=== PATIENT | female | born 1980 | race Hispanic/Latino ===

== ENCOUNTER 2017-03-14 09:54 | Emergency (ER) | payer MEDICAID, OTHER ==
[2017-03-14 09:58] VITALS: BMI 26.4
[2017-03-14 10:01] VITALS: TEMP 98; O2SAT 95
--- NOTE | 2017-03-14 10:32 | C.PDOC ---
History Of Present Illness 36 year old female presents to the ED with complaints of burning and urgency with urination since yesterday. Patient states "I think I have a UTI" and has not had a UTI "in a long time." She denies any fever or abdominal pain. Time Seen by Provider: 03/14/17 10:25 Chief Complaint (Nursing): Female Genitourinary History Per: Patient History/Exam Limitations: no limitations Onset/Duration Of Symptoms: Days (symptoms began yesterday ) Current Symptoms Are (Timing): Still Present Quality Of Discomfort: Burning Associated Symptoms: Urinary Symptoms. denies: Fever, Chills, Nausea, Vomiting , Diarrhea Recent travel outside of the [place]: No Abnormal Vaginal Bleeding: No Past Medical History Reviewed: Historical Data, Nursing Documentation, Vital Signs Vital Signs: Last Vital Signs Temp 98 F 03/14/17 09:57 Pulse 80 03/14/17 09:57 Resp 18 03/14/17 09:57 BP 109/72 03/14/17 09:57 Pulse Ox 95 03/14/17 11:10 Family History: States: Unknown Family Hx - Social History Hx Alcohol Use: No Hx Substance Use: No - Immunization History Hx Tetanus Toxoid Vaccination: No Hx Influenza Vaccination: No Hx Pneumococcal Vaccination: No Review Of Systems Constitutional: Negative for: Fever, Chills Cardiovascular: Negative for: Chest Pain Respiratory: Negative for: Shortness of Breath Gastrointestinal: Negative for: Nausea, Vomiting, Abdominal Pain, Diarrhea Genitourinary: Positive for: Dysuria, Other (urgency ). Negative for: Hematuria , Vaginal Bleeding Musculoskeletal: Negative for: Back Pain Physical Exam - Physical Exam Appears: Non-toxic, No Acute Distress Skin: Warm, Dry Eye(s): bilateral: Normal Inspection Oral Mucosa: Moist Neck: Supple Chest: Symmetrical, No Deformity Cardiovascular: Rhythm Regular Respiratory: Normal Breath Sounds, No Rhonchi, No Wheezing Gastrointestinal/Abdominal: Soft, No Tenderness, No Distention, No Guarding, No Rebound Back: Normal Inspection, No CVA Tenderness, No Vertebral Tenderness, No Paraspinal Tenderness Extremity: Normal ROM, No Tenderness Neurological/Psych: Oriented x3 ED Course And Treatment - Laboratory Results Urine POC: Negative O2 Sat by Pulse Oximetry: 95 (room air ) Disposition Counseled Patient/Family Regarding: Studies Performed, Diagnosis, Need For Followup, Rx Given - Disposition Referrals: YOUR,PMD [Other] Disposition: HOME/ ROUTINE Disposition Time: 11:33 Condition: GOOD Prescriptions: Nitrofurantoin Macrocrystals [Macrobid] 1 cap PO BID #14 cap Phenazopyridine HCl [Pyridium] 200 mg PO BID #6 tablet Instructions: Urinary Tract Infection in Women (ED) Forms: Work/School/Gym Excuse - Clinical Impression Clinical Impression: UTI (urinary tract infection) - Scribe Statement The provider has reviewed the documentation as recorded by the Scribgenesis Belle All medical record entries made by the Carmelaibgenesis were at my direction and personally dictated by me. I have reviewed the chart and agree that the record accurately reflects my personal performance of the history, physical exam, medical decision making, and the department course for this patient. I have also personally directed, reviewed, and agree with the discharge instructions and disposition.
[2017-03-14 11:29] LABS: SQUAMOUS EPITHIAL 3 /hpf (0-5); URINE BACTERIA OCC (<OCC); URINE BILIRUBIN NEGATIVE (NEGATIVE); URINE BLOOD 1+ (NEGATIVE); URINE CLARITY Clear (Clear); URINE COLOR Amber (YELLOW); URINE GLUCOSE (UA) NORMAL (Normal); URINE LEUKOCYTE ESTERASE TRACE Leu/uL (Negative); URINE NITRATE POSITIVE (NEGATIVE); URINE PROTEIN 1+ mg/dL (NEGATIVE)
[2017-03-14 11:37] VITALS: BP 132/82; PULSE 74; RESP 16
== END 2017-03-14 11:37 | disposition home or self-care (01) ==
LOC: C.ER 09:54
DX: N39.0 Urinary tract infection, site not specified (principal)

== ENCOUNTER 2017-04-14 18:09 | Emergency (ER) | payer MEDICAID, OTHER | END 2017-04-14 19:53 | disposition home or self-care (01) | LOC: C.ER 18:09 | DX: J32.9 Chronic sinusitis, unspecified (principal) ==

== ENCOUNTER 2017-10-05 12:37 | Emergency (ER) | payer MEDICAID ==
[2017-10-05 12:43] VITALS: BMI 26.4
--- NOTE | 2017-10-05 14:36 | C.PDOC ---
History Of Present Illness 37 y/o female presents to ED for evaluation of body aches, weakness and head ache X 5 days. Today at work she collapsed. c/o headache 6/10, weakness and body aches for 5 days. Patient states she was feeling "tired" and collapsed. Patient reports mild nose congestion and states she does not usual get headaches which prompted visit to ED. Patient denies nausea, vomiting, numbness , back pain or any other complaints at this time. Time Seen by Provider: 10/05/17 14:14 Chief Complaint (Nursing): Altered Mental Status History Per: Patient History/Exam Limitations: no limitations Onset/Duration Of Symptoms: Hrs Current Symptoms Are (Timing): Still Present Past Medical History Reviewed: Historical Data, Nursing Documentation, Vital Signs Vital Signs: Last Vital Signs Temp 97.7 F 10/05/17 15:42 Pulse 62 10/05/17 15:42 Resp 18 10/05/17 15:42 BP 108/67 10/05/17 15:42 Pulse Ox 98 10/05/17 15:42 - Medical History PMH: Migraine Surgical History: No Surg Hx Family History: States: No Known Family Hx - Social History Hx Alcohol Use: No Hx Substance Use: No - Immunization History Hx Tetanus Toxoid Vaccination: No Hx Influenza Vaccination: No Hx Pneumococcal Vaccination: No Review Of Systems Constitutional: Negative for: Fever, Chills Gastrointestinal: Negative for: Nausea, Vomiting Skin: Negative for: Rash Neurological: Positive for: Weakness, Headache. Negative for: Numbness Physical Exam - Physical Exam Appears: Non-toxic, No Acute Distress Skin: Warm, Dry, No Rash Head: Atraumatic, Normacephalic Eye(s): bilateral: Normal Inspection Oral Mucosa: Moist Neck: Normal ROM, Supple Cardiovascular: Rhythm Regular Respiratory: Normal Breath Sounds, No Rales, No Rhonchi, No Wheezing Gastrointestinal/Abdominal: Soft, No Tenderness, No Guarding, No Rebound Back: No CVA Tenderness Extremity: Normal ROM, Capillary Refill (<2 seconds) Neurological/Psych: Oriented x3 ED Course And Treatment O2 Sat by Pulse Oximetry: 99 (RA) Pulse Ox Interpretation: Normal Progress Note: Tylenol, Motrin and Tamaflu administered. Influenza test ordered Disposition Counseled Patient/Family Regarding: Studies Performed, Diagnosis, Need For Followup - Disposition Referrals: [facility] [Outside] Disposition: HOME/ ROUTINE Disposition Time: 15:49 Condition: IMPROVED Additional Instructions: Your flu test was negative, but during an epidemic we choose to treat you for flu either way. Please follow up with your doctor or our clinic. Prescriptions: Ibuprofen [Motrin] 1 tab PO TID PRN #30 tab PRN Reason: Pain Oseltamivir [Tamiflu] 1 cap PO BID #10 cap Instructions: Viral Syndrome (ED) Forms: [facility] ([place]), General Discharge Instructions, Work Excuse - POA Present On Arrival: None - Clinical Impression Clinical Impression: Influenza-like illness - Scribe Statement The provider has reviewed the documentation as recorded by the Scribgenesis Boucher All medical record entries made by the Scribe were at my direction and personally dictated by me. I have reviewed the chart and agree that the record accurately reflects my personal performance of the history, physical exam, medical decision making, and the department course for this patient. I have also personally directed, reviewed, and agree with the discharge instructions and disposition.
[2017-10-05 15:43] VITALS: BP 108/67; PULSE 62; RESP 18; TEMP 97.7
[2017-10-05 15:51] VITALS: O2SAT 99
== END 2017-10-05 16:00 | disposition home or self-care (01) ==
LOC: C.ER 12:37
DX: J11.1 Influenza due to unidentified influenza virus with other respiratory manifestations (principal)

== ENCOUNTER 2017-12-21 11:36 | Emergency (ER) | payer MEDICAID ==
[2017-12-21 11:48] VITALS: BMI 27.3
--- NOTE | 2017-12-21 12:38 | C.PDOC ---
History Of Present Illness 37 y/o female presents to ED for evaluation of left neck and shoulder pain gradually developed for "past few days after I went to gym". Patient states , " Im might pulled muscle on neck" , now complaints of pain extends from left lateral neck down to left shoulder and left arm associated with intermittent tingling over left hand fingers. Otherwise, Patient denies direct trauma, injury , headache, dizziness, CP, SOB, dyspnea, diaphoresis, palpitation, denies weakness, vascular deficits to Left arm. Ambulate to Ed for evaluation, not in any apparent distress. Time Seen by Provider: 12/21/17 11:52 Chief Complaint (Nursing): Upper Extremity Problem/Injury History Per: Patient History/Exam Limitations: no limitations Onset/Duration Of Symptoms: Days, Gradual Current Symptoms Are (Timing): Still Present Past Medical History Reviewed: Historical Data, Nursing Documentation, Vital Signs Vital Signs: Last Vital Signs Temp 98.0 F 12/21/17 12:49 Pulse 78 12/21/17 12:49 Resp 18 12/21/17 12:49 BP 118/72 12/21/17 12:49 Pulse Ox 98 12/21/17 13:09 - Medical History PMH: Migraine Surgical History: No Surg Hx Family History: States: No Known Family Hx - Social History Hx Alcohol Use: No Hx Substance Use: No - Immunization History Hx Tetanus Toxoid Vaccination: No Hx Influenza Vaccination: No Hx Pneumococcal Vaccination: No Review Of Systems Except As Marked, All Systems Reviewed And Found Negative. Constitutional: Negative for: Fever, Chills Eyes: Negative for: Vision Change Cardiovascular: Negative for: Chest Pain Respiratory: Negative for: Shortness of Breath Musculoskeletal: Positive for: Neck Pain, Shoulder Pain Skin: Negative for: Rash, Bruising Neurological: Positive for: Numbness. Negative for: Weakness, Headache, Dizziness Physical Exam - Physical Exam Appears: Well, Non-toxic, No Acute Distress Skin: Normal Color, Warm, Dry, No Rash, No Ecchymosis Eye(s): bilateral: PERRL Nose: No Discharge Oral Mucosa: Moist Neck: Normal ROM, Trachea Midline, No Midline Cervical Tenderness, No Step Off Deformity, Supple, Other (tenderness left lateral neck over trap muscle with mod muscle spasm. No skin changes, no ecchymoses.) Cardiovascular: Rhythm Regular Respiratory: No Decreased Breath Sounds, No Accessory Muscle Use, No Stridor, No Wheezing Back: No Vertebral Tenderness Extremity: Normal ROM (Left shoulder), Tenderness (mild over superior aspect left shoulder extend up to left lateral neck area. No palpable deformity.), No Deformity, No Swelling Neurological/Psych: Oriented x3, Normal Speech, Normal Motor, Normal Sensation, Normal Reflexes ED Course And Treatment O2 Sat by Pulse Oximetry: 98 (RA) Pulse Ox Interpretation: Normal - Other Rad Left shoulder X-Ray: Interpreted by Me, Viewed By Me Interpretation: (-) acute fx or dislocation Progress Note: On re-eval, pt is not in any apparent distress. Afebrile, hemodynamicaly stable. Non-toxic, tolerate po well in Ed. neck: Supple, mod muscle spasm left trapezium muscle. No midline tenderness, no palpable step offs , (-) meningeals sign. Lungs: CTA B/L, BS equal b/L. CVS: (+)S1S2, reg. LUE: FAROM, no neurovascular deficits. Neuorlogicaly intact. left shoulder xray review and appears normal. Pt has clinical findings c/w Left shoulder strain, left trap muscle spasm. mom advised. ref. to f/u with PMD, Ortho in 1-2 days for re-eval. return if any new changes. Disposition Counseled Patient/Family Regarding: Studies Performed, Diagnosis, Need For Followup, Rx Given - Disposition Referrals: [facility] [Outside] Disposition: HOME/ ROUTINE Disposition Time: 12:05 Condition: STABLE Additional Instructions: Light duty to neck and Left shoulder for 1-2 weeks take medication as prescribed Follow up with PMD, Orthopedist in 2-3 days for re-evaluation as need return to ED if any worsening or new changes. Prescriptions: Ibuprofen [Motrin Tab] 600 mg PO Q6 #14 tab Methocarbamol [Robaxin] 500 mg PO TID #14 tab Prednisone [Deltasone] 20 mg PO DAILY #3 tablet Instructions: Muscle Spasms (DC), Shoulder Pain (DC) Forms: [facility] (Polish), Work Excuse - Clinical Impression Clinical Impression: Shoulder strain - PA / PSYCHIATRIC MENTAL HEALTH NURSE / Resident Statement MD/DO has reviewed & agrees with the documentation as recorded. - Scribe Statement The provider has reviewed the documentation as recorded by the Fanny Boucher All medical record entries made by the Fanny were at my direction and personally dictated by me. I have reviewed the chart and agree that the record accurately reflects my personal performance of the history, physical exam, medical decision making, and the department course for this patient. I have also personally directed, reviewed, and agree with the discharge instructions and disposition.
--- NOTE | 2017-12-21 12:41 | RAD ---
PROCEDURE: Radiographs of the Left Shoulder HISTORY: pain COMPARISON: No prior. FINDINGS: BONES: Normal. No fracture. JOINTS: Normal. Glenohumeral and acromioclavicular joints preserved. No osteoarthritis. SOFT TISSUES: Normal. OTHER FINDINGS: None. IMPRESSION: Normal radiographs of the left shoulder.
[2017-12-21 12:50] VITALS: BP 118/72; PULSE 78; RESP 18; TEMP 98
[2017-12-21 13:04] VITALS: O2SAT 98
== END 2017-12-21 12:56 | disposition home or self-care (01) ==
LOC: C.ER 11:36
DX: S46.912A Strain of unspecified muscle, fascia and tendon at shoulder and upper arm level, left arm, initial encounter (principal); X58.XXXA Exposure to other specified factors, initial encounter